=== PATIENT | female | born 1975 | race African-American/Black ===

== ENCOUNTER 2018-10-08 16:07 | Emergency (ER) | payer BC, OTHER | END 2018-10-08 16:25 | disposition home or self-care (01) | LOC: SCSER 16:07 | DX: J06.9 Acute upper respiratory infection, unspecified (principal); E11.9 Type 2 diabetes mellitus without complications; Z79.84 Long term (current) use of oral hypoglycemic drugs | CPT/HCPCS: 99283 ==

== ENCOUNTER 2019-03-09 14:44 | Outpatient (CLI) | payer OTHER ==
--- NOTE | 2019-03-09 15:45 | ULT ---
RIGHT BREAST ULTRASOUND LEFT BREAST ULTRASOUND: Date: 03/09/19 COMPARISON: None. HISTORY: 43-year-old female who reports a small palpable abnormality on the left and a painful palpable abnorm ality on the right. FINDINGS: Focused ultrasound in the area of palpable concern obtained bilaterally. On the left, the area of palpable concern is at the 10 o'clock position. Focused ultrasound of the le ft breast is unremarkable. On the right, the area of palpable concern is also at the 10 o'clock position. In this region, there is an ill-defined area of increased echogenicity just deep to the subcutaneous fat measuring approxim ately 1.8 x 0.8 cm. Centrally within this focus of increased echogenicity is a small hypoechoic area measuring in the 3.0 mm range. Given pain and its appearance on mammogram, fat necrosis is favored. R ecommend short-term follow-up ultrasound in 6 months. IMPRESSION: 1. BI-RADS Category 3 - Probably benign findings. Recommend follow-up ultrasound and diagnostic mamm ogram on the right in 6 months. 2. Unremarkable focused ultrasound of the left breast. The facility will notify patient of need for additional imaging services. POS: OFF
--- NOTE | 2019-03-09 16:04 | MMO ---
Bilateral MAMMO Bilat Diag [facility]. CLINICAL HISTORY: Patient is 43 years old and is seen for diagnostic exam and palpable abnormality in both breasts. The patient has the following family history of breast cancer: mother, at age 35 and sister, at age 40. The patient has no personal history of cancer. VIEWS: The views performed were: bilateral craniocaudal; bilateral craniocaudal with tomosynthesis; bilateral mediolateral oblique with tomosynthesis; bilateral mediolateral; and left mediolateral oblique. FILMS COMPARED: The present examination has been compared to prior imaging studies performed at [facility] on 12/22/2015, 06/25/2017 and 03/09/2019. MAMMOGRAM FINDINGS: There are scattered fibroglandular densities. The area of concern on the left is unremarkable on mammography and focused ultrasound. On the right in the area of concern there is an ill-defined superficial focus of increased density. Focused ultrasound demonstrates findings most consistent with fat necrosis. Follow up ultrasound and diagnostic mammogram recommended on the right in 6 months. In the left breast, there are no suspicious masses, calcifications or areas of architectural distortion. IMPRESSION: FINDING IN THE RIGHT BREAST IS PROBABLY BENIGN. FOLLOW-UP IN 6 MONTHS IS RECOMMENDED. THE RESULTS OF THIS EXAM WERE SENT TO THE PATIENT. ACR BI-RADS Category 3 - Probably benign finding - short interval follow-up suggested. [facility] will notify the patient of the need for additional imaging services. MAMMOGRAPHY NOTE: 1. A negative mammogram report should not delay a biopsy if a dominant of clinically suspicious mass is present. 2. Approximately 10% to 15% of breast cancers are not detected by mammography. 3. Adenosis and dense breasts may obscure an underlying neoplasm.
== END 2019-03-09 14:45 | disposition home or self-care (01) ==
LOC: BICMAMMO 14:44
PROVIDERS: ATTEND Physician Assistant
DX: N63.10 Unspecified lump in the right breast, unspecified quadrant (principal); Z80.3 Family history of malignant neoplasm of breast
CPT/HCPCS: 77066; G0279

== ENCOUNTER 2019-11-04 14:02 | Emergency (ER) | payer OTHER, SELFPAY ==
[~2019-11-04 14:02] MED LIST: Iopamidol-370 76% 500 ML 1 ML ONE
[2019-11-04 14:32] LABS: #Eosinphils 0.1 thou/uL (0.0-0.7); #Lymphocytes 1.7 thou/uL (1.20-3.40); #Monocytes 0.5 thou/uL (0.11-0.59); #Neutrophils 5.5 thou/uL (1.40-6.50); %Basophils 0.4 % (0.0-1.0); %Eosinophils 0.9 % (0.0-10.0); %Lymphocytes 21.3 % (21.0-51.0); %Monocytes 6.3 % (0.0-10.0); %Neutrophils 71.1 % (42.0-75.0); Hemoglobin 8.8 g/dL (12.0-16.0); Mean Corpuscular HGB CONC 30.5 g/dL (32.0-36.0); Mean Platelet Volume 10.9 fL (7.4-10.4); Platelet Count 317 thou/uL (130-400); RBC Distribution Width 17.1 % (11.5-14.5); White Blood Cell (WBC) Count 7.7 thou/uL (4.8-10.8)
[2019-11-04 14:51] LABS: ALT (SGPT) 8 U/L (8-55); AST (SGOT) 17 U/L (5-34); Albumin 3.5 g/dL (3.5-5.0); Alkaline Phosphatase 49 U/L (40-110); Anion Gap 13 mmol/L (10-20); BUN (Urea Nitrogen) 16 mg/dL (7.0-18.7); Bilirubin, Total 0.3 mg/dL (0.2-1.2); Calc. Creatinine Clearance 0 mL/min (70-130); Calcium 8.8 mg/dL (7.8-10.44); Carbon Dioxide 20 mmol/L (22-29); Chloride 110 mmol/L (98-107); Estimated GFR-MDRD 88; Globulin 3.7 g/dL (2.4-3.5); Glucose 83 mg/dL (70-105); Lipase 144 U/L (8-78); Protein, Total 7.2 g/dL (6.0-8.3); Sodium 139 mmol/L (136-145)
[2019-11-04 14:59] LABS: Hypochromia SLIGHT = 6-15 cells (100X) (0-5/hpf); MDiff Complete? YES; Microcytosis MODERATE=15-30 cells (100X) (0-5/hpf); Platelet Morphology Comment Appears Adequate; Polychromasia SLIGHT = 2-3 cells (100X) (0-2/hpf); Schistocytes SLIGHT = 2-5 cells (100X) (0-1/hpf); Target Cells SLIGHT = 2-5 cells (100X) (0-1/hpf); Tear Drops SLIGHT = 2-5 cells (100X) (0-1/hpf)
--- NOTE | 2019-11-04 15:08 | RAD ---
RADIOGRAPH CHEST 2 VIEWS: DATE: 11/04/2019 HISTORY: 43-year-old female with cough and chest pain FINDINGS: There is no airspace density, pulmonary edema, pleural effusion, pneumothorax, or cardiomegaly. IMPRESSION: No acute cardiopulmonary findings.
[2019-11-04 15:18] LABS: Bacteria/HPF None Seen HPF (None Seen); Bilirubin Negative (Negative); Blood, Urine Negative (Negative); Clarity Clear (Clear); Glucose, Urine (Dipstick) Normal (Negative); Leukocyte 250 Leu/uL (Negative); Nitrite Negative (Negative); Protein, Urine (Dipstick) Negative (Neg-Trace); RBC/HPF 0-3 HPF (0-3); Urobilinogen Normal mg/dL (Less than 2)
[2019-11-04 15:19] LABS: Pregnancy Test - Urine (BHCG) Negative (Negative); Pregu Control Background? CLEAR/WHITE (CLR/WHITE); Pregu Control Bar Appear? YES (CONTROL BAR); Specific Gravity 1.013 (1.002-1.036)
[2019-11-04] MEDS ORDERED: Ondansetron PF 4 MG/2 ML Vial ONE (15:23)
[2019-11-04] MEDS ORDERED: Morphine 4 MG/ML VIAL ONE (15:23)
[2019-11-04 16:14] LABS: BHCG - Serum Negative (NEGATIVE); Pregs Control Background? CLEAR/WHITE (CLR/WHITE); Pregs Control Bar Appear? YES (CONTROL BAR)
--- NOTE | 2019-11-04 16:17 | CT ---
CT Abdomen Pelvis W Con: 11/04/2019 3:16 PM CLINICAL INFORMATION: Intermittent chest pain and abdominal pain radiating to the back COMPARISON: None. TECHNIQUE: Multiple contiguous axial images were obtained and a CT of the abdomen and pelvis with IV contrast. C oronal and sagittal reformats were performed. FINDINGS: Lower Chest: within normal limits. Abdomen: Liver: within normal limits. Bile Ducts: Normal caliber. Gallbladder: Removed Pancreas: within normal limits. Spleen: within normal limits. Adrenals: within normal limits. Kidneys: within normal limits. Pelvis: Reproductive Organs: No pelvic masses. Ureters: within normal limits. Bladder: within normal limits. Peritoneum: No ascites or free air, no fluid collection. Bowel: Normal caliber. Normal appendix. Mesentery and Retroperitoneum: No enlarged mesenteric or retroperitoneal lymph nodes. Vessels: Normal. Abdominal Wall: within normal limits. Bones: Within normal limits IMPRESSION: No evidence of acute intraabdominal or pelvic abnormality.
== END 2019-11-04 17:00 | disposition home or self-care (01) ==
LOC: ERS 14:02
DX: R10.9 Unspecified abdominal pain (principal); R10.811 Right upper quadrant abdominal tenderness; E11.9 Type 2 diabetes mellitus without complications
CPT/HCPCS: 36415; 71046; 74177; 80053; 81003; 81015; 81025; 83690; 84484; 84703; 85025; 93005; 96374; 96375; J2270; J2405; Q9967

== ENCOUNTER 2020-08-23 12:05 | Outpatient (CLI) | payer BC ==
--- NOTE | 2020-08-23 14:20 | RAD ---
RIGHT KNEE 3 VIEWS: Date: 08/23/2020 INDICATION: Acute right knee pain. COMPARISON: None. FINDINGS: No acute fracture or subluxation is evident. Soft tissues are normal appearing. IMPRESSION: No acute osseous abnormality. POS: BH
== END 2020-08-23 12:06 | disposition home or self-care (01) ==
LOC: BICRAD 12:05
PROVIDERS: ATTEND Physician Assistant
DX: M25.561 Pain in right knee (principal)

== ENCOUNTER 2020-10-17 21:44 | Emergency (ER) | payer BC ==
[2020-10-17] MEDS ORDERED: Dexamethasone 10 MG/ML VIAL ONE (22:28)
[2020-10-17] MEDS ORDERED: Metoclopramide HCl 10 MG/2 ML VIAL ONE (22:28)
[2020-10-17] MEDS ORDERED: Ketorolac Tromethamine 30 MG/ML VIAL ONE (22:28)
[2020-10-18 00:03] LABS: Bacteria/HPF 3+ HPF (None Seen); Bilirubin Negative (Negative); Blood, Urine 3+ (Negative); Clarity Clear (Clear); Glucose, Urine (Dipstick) Normal (Negative); Ketone, Urine Negative (Negative); Leukocyte 75 Leu/uL (Negative); Nitrite Negative (Negative); Pregnancy Test - Urine (BHCG) Negative (Negative); Pregu Control Background? CLEAR/WHITE (CLR/WHITE); Pregu Control Bar Appear? YES (CONTROL BAR); Protein, Urine (Dipstick) 10 mg/dL (Neg-Trace); Specific Gravity, Urine 1.016 (1.002-1.036); Urobilinogen Normal mg/dL (Less than 2); pH, Urine 5.5 (5.0-9.0)
[2020-10-18 00:06] LABS: Specific Gravity 1.016 (1.002-1.036)
== END 2020-10-18 00:19 | disposition home or self-care (01) ==
LOC: ERS 21:44
DX: R51.9 Headache, unspecified (principal); N39.0 Urinary tract infection, site not specified; M54.6 Pain in thoracic spine; E11.9 Type 2 diabetes mellitus without complications
CPT/HCPCS: 81003; 81015; 81025; 96374; 96375; J1100; J1885; J2765

== ENCOUNTER 2021-01-30 10:09 | Outpatient (CLI) | payer BC | END 2021-01-30 10:10 | disposition home or self-care (01) | LOC: BICMAMMO 10:09 | PROVIDERS: ATTEND Physician Assistant | DX: R92.8 Other abnormal and inconclusive findings on diagnostic imaging of breast (principal); N63.20 Unspecified lump in the left breast, unspecified quadrant | CPT/HCPCS: 77066; G0279 ==

== ENCOUNTER 2022-09-06 09:26 | Outpatient (CLI) | payer BC | END 2022-09-06 09:27 | disposition home or self-care (01) | LOC: BICULT 09:26 | PROVIDERS: ATTEND Physician Assistant | DX: N93.9 Abnormal uterine and vaginal bleeding, unspecified (principal); N85.8 Other specified noninflammatory disorders of uterus; N83.8 Other noninflammatory disorders of ovary, fallopian tube and broad ligament | CPT/HCPCS: 76856 ==

== ENCOUNTER 2023-07-26 09:42 | Outpatient (CLI) | payer BC | END 2023-07-26 09:43 | disposition home or self-care (01) | LOC: BICMAMMO 09:42 | PROVIDERS: ATTEND Physician Assistant | DX: Z12.31 Encounter for screening mammogram for malignant neoplasm of breast (principal); Z80.3 Family history of malignant neoplasm of breast | CPT/HCPCS: 77063; 77067 ==

== ENCOUNTER 2023-08-06 11:01 | Outpatient (CLI) | payer BC | END 2023-08-06 11:02 | disposition home or self-care (01) | LOC: RAD 11:01 | PROVIDERS: ATTEND Physician Assistant | DX: M25.562 Pain in left knee (principal) ==

== ENCOUNTER 2023-08-22 11:01 | Outpatient (CLI) | payer BC | END 2023-08-22 11:02 | disposition home or self-care (01) | LOC: DTY/OP 11:01 | PROVIDERS: ATTEND Surgery | DX: E66.01 Morbid (severe) obesity due to excess calories (principal) | CPT/HCPCS: 97802 ==

== ENCOUNTER 2024-02-03 11:30 | Inpatient (IN) | payer BC ==
[2024-02-03 12:26] VITALS: BMI 56.0
[2024-02-12] MEDS ORDERED: Bupivacaine 0.25% HCL 30 ML VIAL ONE (06:39)
[2024-02-12] MEDS ORDERED: EPINEPHrine 1 MG/ML VIAL ONE (06:39)
[2024-02-12] MEDS ORDERED: CEFAZOLIN 2 GM VIAL ONE (06:50)
[2024-02-12] MEDS ORDERED: Heparin 5,000 UNITS/ML VIAL ONE (06:50)
[2024-02-12] MEDS ORDERED: Sodium Chloride 0.9% 100 ML ONE (06:50)
[2024-02-12] MEDS ORDERED: PROPOFOL 20 ML ONE (07:03)
[2024-02-12] MEDS ORDERED: fentaNYL PF 100 MCG/2 ML SYRINGE ONE ×2 (07:03→09:27)
[2024-02-12] MEDS ORDERED: Lidocaine 1% PF 5 ML VIAL ONE (07:04)
[2024-02-12] MEDS ORDERED: Rocuronium Bromide 10 MG/ML (10ML VIAL) ONE (07:04)
[2024-02-12] MEDS ORDERED: Dexamethasone 20 MG/5 ML VIAL ONE (07:58)
[2024-02-12] MEDS ORDERED: Ondansetron PF 4 MG/2 ML Vial ONE (07:58)
[2024-02-12] MEDS ORDERED: Ketorolac Tromethamine 30 MG (1 mL) VIAL ONE (07:58)
[2024-02-12] MEDS ORDERED: ePHEDrine Sulfate 50 MG/10 ML VIAL ONE (08:17)
[2024-02-12] MEDS ORDERED: fentaNYL 50 mcg/mL 1 mL Vial ONE (08:34)
[2024-02-12] MEDS ORDERED: SUGAMMADEX SODIUM 200 MG/2 ML VIAL ONE (08:57)
[2024-02-12] MEDS ORDERED: Dextrose 5% in Water 1,000 ML IV PRN (09:06)
[2024-02-12] MEDS ORDERED: diphenhydrAMINE 50 MG/ML VIAL IVP PRN ×2 (09:06→09:27)
[2024-02-12] MEDS ORDERED: Ipratropium/Albuterol 3 ML NEB NEB PRN (09:06)
[2024-02-12] MEDS ORDERED: hydrALAZINE 20 MG/ML VIAL SLOW IVP PRN (09:06)
[2024-02-12] MEDS ORDERED: Promethazine HCl 25 MG/ML VIAL IM PRN ×2 (09:06→09:27)
[2024-02-12] MEDS ORDERED: Hydrocodone-Acetamin 15 ML UDCUP PO PRN (09:06)
[2024-02-12] MEDS ORDERED: Ondansetron PF 4 MG/2 ML Vial IVP PRN ×2 (09:06→09:27)
[2024-02-12] MEDS ORDERED: Dextrose 50% Abboject 50 ML SYRINGE SLOW IVP PRN (09:06)
[2024-02-12] MEDS ORDERED: Glucagon 1 MG/ML KIT IM PRN (09:06)
[2024-02-12] MEDS ORDERED: diphenhydrAMINE 25 MG CAP PO PRN (09:27)
[2024-02-12] MEDS ORDERED: Naloxone HCl 0.4 mg/ml Vial IV PRN (09:27)
[2024-02-12] MEDS ORDERED: diphenhydrAMINE 50 MG/ML VIAL IM PRN (09:27)
[2024-02-12] MEDS ORDERED: FENTANYL 500 MCG/10 ML VIAL 2,000 MCG in Sodium Chloride 0.9% 60 ML IV PRN (09:27)
[2024-02-12] MEDS ORDERED: Communication Order-Pharmacy FS SCH (09:30)
[2024-02-12] MEDS ORDERED: Promethazine HCl 25 MG/ML VIAL ONE (09:49)
[2024-02-12] MEDS: Ketorolac Tromethamine 30 MG (1 mL) VIAL IVP SCH (12:13)
[2024-02-12] MEDS: 1/2 NS w/Potassium 20 mEq 1,000 ML IV SCH (12:14)
[2024-02-12] MEDS: CEFAZOLIN 2 GM in Sodium Chloride 0.9% 100 ML IVPB SCH (13:44)
[2024-02-13 05:52] LABS: #Basophils Less than 0.03 10x3/uL (0.0-0.2); #Eosinphils Less than 0.03 10x3/uL (0.0-0.7); %Basophils 0.1 % (0.0-1.0); %Lymphocytes 16.6 % (21.0-51.0); %Monocytes 8.7 % (0.0-10.0); %Neutrophils 74.5 % (42.0-75.0); Hematocrit 28.5 % (36.0-47.0); Hemoglobin 8.9 g/dL (12.0-16.0); Mean Corpuscular HGB CONC 31.2 g/dL (32.0-36.0); Mean Corpuscular Hemoglobin 24.2 pg (27.0-31.0); Mean Corpuscular Volume 77.4 fL (78.0-98.0); Mean Platelet Volume 10.9 fL (7.4-10.4); Platelet Count 269 10x3/uL (130-400); RBC Distribution Width 15.9 % (11.5-14.5); Red Blood Cell (RBC) Count 3.68 mill/uL (4.20-5.40)
[2024-02-13 06:19] LABS: Anion Gap 13 mmol/L (10-20); BUN (Urea Nitrogen) 11 mg/dL (7.0-18.7); Calc. Creatinine Clearance 177 mL/min (70-130); Carbon Dioxide 20 mmol/L (22-29); Chloride 108 mmol/L (98-107); Estimated GFR 81; Glucose 93 mg/dL (70-105); Potassium 4.4 mmol/L (3.5-5.1); Sodium 137 mmol/L (136-145)
[2024-02-13] MEDS: Enoxaparin 40 MG (0.4 mL) SYRINGE SC SCH (09:01)
[2024-02-13] MEDS: Pantoprazole 40 MG VIAL IVP SCH (09:01)
[2024-02-13] MEDS: Hydrocodone-Acetamin 15 ML UDCUP PO PRN (11:25)
[2024-02-13 12:03] VITALS: BP 123/72; TEMP 98
== END 2024-02-13 14:20 | disposition home or self-care (01) | DRG 621 ==
LOC: SURG A 02-12 06:15 → SURG B 02-12 10:28 → EDSTATUS 02-12 11:30
PROVIDERS: ADMIT Surgery; ATTEND Surgery
PROC: 0DB64Z3 Excision of Stomach, Percutaneous Endoscopic Approach, Vertical (ICD-10-PCS; principal; 2024-02-12)
PROC: 8E0W4CZ Robotic Assisted Procedure of Trunk Region, Percutaneous Endoscopic Approach (ICD-10-PCS; 2024-02-12)
DX: E66.01 Morbid (severe) obesity due to excess calories (principal); Z68.43 Body mass index [BMI] 50.0-59.9, adult; Z79.899 Other long term (current) drug therapy; Z98.51 Tubal ligation status
CPT/HCPCS: 36415; 80048; 85025; 88307; 88313; 88342; 94760; C9113; J0171; J0665; J1100; J1644; J1650; J1885; J2405; J2550; J2704; J3010; J3480; J3490

== ENCOUNTER 2024-08-06 07:41 | Outpatient (CLI) | payer BC | END 2024-08-06 07:42 | disposition home or self-care (01) | LOC: ULT 07:41 | DX: D50.9 Iron deficiency anemia, unspecified (principal); R93.89 Abnormal findings on diagnostic imaging of other specified body structures; D25.9 Leiomyoma of uterus, unspecified | CPT/HCPCS: 76856 ==

== ENCOUNTER 2024-09-24 08:45 | Emergency (ER) | payer BC ==
[2024-09-24] MEDS ORDERED: Ketorolac Tromethamine 30 MG (1 mL) VIAL ONE (09:48)
[2024-09-24 09:55] LABS: Bacteria/HPF None Seen HPF (None Seen); Bilirubin Negative (Negative); Blood, Urine Negative (Negative); CAUTI Indications for Culture Acute Hematuria; Clarity Turbid (Clear); Glucose, Urine (Dipstick) Normal (Negative); Ketone, Urine Negative (Negative); Leukocyte 500 Leu/uL (Negative); Nitrite Negative (Negative); Protein, Urine (Dipstick) Negative (Neg-Trace); RBC/HPF None Seen HPF (0-3); Specific Gravity, Urine 1.012 (1.002-1.036); Urobilinogen Normal mg/dL (Less than 2); WBC/HPF 21-50 HPF (0-3)
[2024-09-24 09:59] LABS: Urine Culture Reflex Yes Yes
== END 2024-09-24 11:14 | disposition home or self-care (01) ==
LOC: ERS 08:45
DX: M25.512 Pain in left shoulder (principal); E11.9 Type 2 diabetes mellitus without complications
CPT/HCPCS: 81001; 87086; 93005; 96372; 99283; J1885